=== PATIENT | female | born 1985 | race American Indian/Alaskan Native ===

== ENCOUNTER 2021-06-01 19:50 | Emergency (ER) | payer SELFPAY ==
[2021-06-01 21:24] LABS: Basophils % (Auto) 0.5 % (0.0-1.8); Eosinophils # (Auto) 0.1 K/mm3 (0.0-0.4); Eosinophils % (Auto) 1.5 % (0.0-4.3); Hematocrit 35.2 % (30.3-42.9); Hemoglobin 12.1 gm/dl (10.1-14.3); Lymphocytes # (Auto) 0.7 K/mm3 (1.2-5.4); Lymphocytes % (Auto) 15.6 % (13.4-35.0); Mean Corpuscular HGB Conc 34 % (30-34); Mean Corpuscular Volume 101 fl (79-97); Monocytes # (Auto) 0.4 K/mm3 (0.0-0.8); Monocytes % (Auto) 8.7 % (0.0-7.3); Platelet Count 107 K/mm3 (140-440); Red Blood Count 3.47 M/mm3 (3.65-5.03); Red Cell Distribution Width 13.2 % (13.2-15.2)
--- NOTE | 2021-06-01 21:29 | XRay Report ---
CHEST 2 VIEWS INDICATION / CLINICAL INFORMATION: chest pain. COMPARISON: None available. FINDINGS: SUPPORT DEVICES: None. HEART / MEDIASTINUM: No significant abnormality. LUNGS / PLEURA: No significant pulmonary or pleural abnormality. No pneumothorax. ADDITIONAL FINDINGS: No significant additional findings. IMPRESSION: 1. No acute findings. Signer Name: Jamarcus Caceres MD Signed: 06/01/2021 9:24 PM Workstation Name: [id number]
[2021-06-01 21:45] LABS: Alanine Aminotransferase 48 units/L (7-56); Albumin 4.6 g/dL (3.9-5); Blood Urea Nitrogen 8 mg/dL (7-17); Calcium 9.3 mg/dL (8.4-10.2); Hemolysis Index 10
[2021-06-01 21:59] LABS: BUN/Creatinine Ratio 13
[2021-06-01 22:28] VITALS: BP 126/94
--- NOTE | 2021-06-02 12:36 | Electrocardiograph Report ---
[facility] Test Date: 2021-06-01 Test Time: 20:59:49 Pat Name: MILADIS HYLTON Department: Room: Gender: F [place] Hand: MATTHEW : 1985 Requested By: JOSE ALFREDO DEL ANGEL III Order Number: [id number] Reading MD: Ave Jones Measurements Intervals [place] Rate: 76 P: 77 VT: 126 QRS: 30 QRSD: 92 T: 31 QT: 422 QTc: 475 Interpretive Statements Sinus rhythm T wave inversions, consider anterior ischemia No previous ECG available for comparison Electronically Signed On 06-02-2021 12:36:[address]
== END 2021-06-02 03:34 | disposition left against medical advice (07) ==
LOC: ED 19:50
DX: J02.9 Acute pharyngitis, unspecified (principal); R07.89 Other chest pain; Z53.21 Procedure and treatment not carried out due to patient leaving prior to being seen by health care provider
CPT/HCPCS: 36415; 71046; 80053; 84484; 85025; 93005

== ENCOUNTER 2021-06-02 16:23 | Emergency (ER) | payer OTHER ==
[2021-06-02 17:04] VITALS: BP 130/85
--- NOTE | 2021-06-02 17:11 | Event Note ---
ED Screening Note Date of service: 06/02/21 Time: 17:10 ED Screening Note: 36-year-old female patient with history of tobacco use presents to the emergency department with complaints of cough and myalgias starting 4 days ago and chest pain starting yesterday. Patient has not received her COVID-19 vaccination series. No known sick contacts. No current steroid or antibiotic use. Took DayQuil yesterday with limited relief. No recent travel. Tachycardic in triage. General: Awake, appropriately interactive, no acute distress. Neck: Supple. Full range of motion intact. Cardiovascular: Normal peripheral perfusion. Pulmonary: No respiratory distress. Patient is speaking normally without use of accessory muscles. Skin: No apparent rashes or lesions. Neurological: No facial asymmetry. Speech is clear. Follows commands. Patient is alert and oriented. Musculoskeletal: Moves all four extremities spontaneously with normal range of motion. Psych: Cooperative. Appropriate mood and affect. I have greeted and performed a focused rapid initial assessment of this patient. A comprehensive ED assessment and evaluation of the patient, analysis of all test results, and completion of the medical decision-making process will be conducted by additional ED providers. This initial assessment/diagnostic orders/clinical plan/treatment(s) is/are subject to change based on patients health status, clinical progression and re-assessment. Further treatment and workup at subsequent clinical provider's discretion. Patient/guardian urged not to elope from the ED as their condition may be serious if not clinically assessed and managed.
--- NOTE | 2021-06-02 17:31 | XRay Report ---
CHEST 2 VIEWS INDICATION / CLINICAL INFORMATION: Cough and chest pain. Possible COVID-19. COMPARISON: Yesterday. FINDINGS: SUPPORT DEVICES: None. HEART / MEDIASTINUM: The heart size and pulmonary vasculature are normal. The aorta is normal in fransisca eleanor. LUNGS / PLEURA: No significant pulmonary or pleural abnormality. No pneumothorax. ADDITIONAL FINDINGS: No significant additional findings. IMPRESSION: No acute abnormality or significant change. Signer Name: Gibran Jensen MD Signed: 06/02/2021 5:26 PM Workstation Name: [id number]
--- NOTE | 2021-06-02 18:39 | Emergency Department Report ---
ED General Adult HPI - General Chief complaint: Chest Pain Stated complaint: CHEST PAIN,COUGH,BODY ACHES,RUNNY NOSE Time Seen by Provider: 06/02/21 18:36 Source: patient Mode of arrival: Ambulatory Limitations: No Limitations - History of Present Illness Initial comments: 36-year-old female patient with history of tobacco use presents to the emergency department with complaints of cough and myalgias starting 4 days ago and chest pain starting yesterday. Patient has not received her COVID-19 vaccination series. No known sick contacts. No current steroid or antibiotic use. Took DayQuil yesterday with limited relief. No recent travel. Denies headache, wheezing, hemoptysis, vomiting, diarrhea, abdominal pain, syncope. Denies other complaints at this time. - Related Data Allergies Allergy/AdvReac Type Severity Reaction Status Date / Time No Known Allergies Allergy Verified 06/02/21 16:26 ED Review of Systems ROS: Stated complaint: CHEST PAIN,COUGH,BODY ACHES,RUNNY NOSE Other details as noted in HPI Other: GENERAL: Negative for fever. CARDIOVASCULAR: Negative for chest pain. PULMONARY: Positive for cough. GASTROINTESTINAL: Negative for abdominal pain. MUSCULOSKELETAL: Positive for myalgias. NEUROLOGICAL: Negative for headache. INTEGUMENTARY: Negative for rash. ED Past Medical Hx - Past Medical History Previous Medical History?: No - Surgical History Past Surgical History?: No ED Physical Exam - General Limitations: No Limitations - Other Other exam information: General: Awake and alert. No acute distress. Head: Atraumatic, normocephalic. Eyes: EOMI. Pupils are equal and round. Normal sclera and conjunctiva. ENT: Oral mucosa is moist. Normal pharyngeal exam. Neck: Supple. No lymphadenopathy. Pulmonary: No respiratory distress. Clear to auscultation bilaterally. Cardiac: Tachycardic. Pulses are palpable and equal bilaterally. No lower extremity cyanosis or edema. Skin: Warm and dry. No rashes. Abdomen: Soft, non-tender, non-protuberant. No guarding, rigidity, or rebound. Bowel sounds are normal. No organomegaly or masses noted. Back: Normal alignment. No CVA tenderness. Extremities: Symmetrical. Full range of motion intact. Neurological: Alert and oriented, appropriately interactive, no focal deficits. Psych: Cooperative. Appropriate mood and affect. Speech is evenly metered. Thoughts are logically construed. ED Course Vital Signs 06/02/21 06/02/21 16:25 16:27 Temperature 99.0 F Pulse Rate 101 H 117 H Respiratory 18 Rate Blood Pressure 130/85 O2 Sat by Pulse 98 Oximetry ED Medical Decision Making - Medical Decision Making Differential diagnosis including but not limited to: pneumonia, influenza, pertussis, viral upper respiratory infection On reevaluation, patient remains stable. No hypoxia, no respiratory distress. Tachycardia improved without intervention. Repeat heart rate 101 bpm. EKG without acute injury pattern. Chest x-ray without acute process. History and exam findings suggestive of viral upper respiratory infection. COVID-19 testing is currently unavailable at this facility. Patient will be discharged home with instructions for appropriate symptomatic treatment and referred to primary care provider for close outpatient follow-up. Patient expressed understanding and is agreeable to plan of care. Disease transmission precautions discussed. Strict return precautions provided. Repeat exam is unremarkable and benign. History, exam, diagnostic testing, and current condition do not suggest worrisome pathology to warrant further testing, continued ED treatment, admission, or surgical evaluation at this point. Given the low probability of a significant medical illness, it would be more likely to result in harm than benefit to perform further testing at this stage. Discussed findings, presumptive diagnosis, need for follow-up and specific signs/symptoms that should prompt immediate return to the emergency department. Instructions were explained in detail to the patient in addition to giving written discharge information. Patient expressed understanding and was given the opportunity to ask questions, all of which were satisfactorily answered prior to discharge home. Critical care attestation.: If time is entered above; I have spent that time in minutes in the direct care of this critically ill patient, excluding procedure time. ED Disposition Clinical Impression: Viral respiratory illness Disposition: DC-01 TO HOME OR SELFCARE Is pt being admited?: No Does the pt Need Aspirin: No Condition: Stable Instructions: Viral Illness, Adult Additional Instructions: Take Tylenol every 4 hours and Motrin every 8 hours as needed for pain. Continue [id number] cough/cold remedies as needed. Rest. Drink plenty of fluids. Wash hands frequently to prevent disease transmission. Do not share food or drinks with others. Follow-up with primary care provider this week. Call tomorrow to schedule an appointment. See referral information below. Return to the emergency department immediately for new or worsening symptoms. Referrals: KALEE CARMEN MD [Staff Physician] - 3-5 Days [facility] [Outside] - 3-5 Days [facility] [Outside] - 3-5 Days [facility] [Outside] - 3-5 Days [facility] [Provider Group] - 3-5 Days Forms: Work/School Release Form(ED) Time of Disposition: 18:39
--- NOTE | 2021-06-03 14:08 | Electrocardiograph Report ---
[facility] Test Date: 2021-06-02 Test Time: 16:32:26 Pat Name: DAREN HYLTON Department: Room: Gender: F Energy Specialist: NIK : 1985 Requested By: JOANIE GIRARD Order Number: [id number] Reading MD: Ave Jones Measurements Intervals [place] Rate: 101 P: 78 [place]: 120 QRS: 47 QRSD: 87 T: 29 QT: 375 QTc: 486 Interpretive Statements Sinus tachycardia Low voltage, precordial leads Compared to ECG 06/01/2021 20:59:49 Anterior T wave inversions are less prominent on the current ECG Electronically Signed On 06-03-2021 14:08:[address]
== END 2021-06-02 19:06 | disposition home or self-care (01) ==
LOC: ED 16:23
DX: J98.8 Other specified respiratory disorders (principal); B97.89 Other viral agents as the cause of diseases classified elsewhere
CPT/HCPCS: 71046; 93005